=== PATIENT | female | born 1950 | race Caucasian/White ===

== ENCOUNTER 2018-07-01 16:22 | Inpatient (IN) | payer MEDICAID ==
[2018-07-01] MEDS ORDERED: Sodium Chloride 0.9% 1,000 ML IV ONE (16:27)
[2018-07-01] MEDS ORDERED: Haloperidol Lactate 5 mg/mL 1mL Vial IM STA (16:53)
[2018-07-01] MEDS ORDERED: Haloperidol Lactate 5 mg/mL 1mL Vial ONE (17:25)
--- NOTE | 2018-07-01 17:41 | ED Physician Chart ---
ED Chief Complaint/HPI - Patient Information Date Seen:: 07/01/18 Time Seen:: 16:20 Chief Complaint:: AMS History of Present Illness:: onset x 2 days of ALOC, AMS, confusion, agitation, and combative behavior; no report of trauma, H/As, S/T, neck pain, cough, C/P, SOB, Abd. Pain, A/N/V/D/C, fever, chills, or urinary s/s Allergies:: Allergies Allergy/AdvReac Type Severity Reaction Status Date / Time Penicillins [PCN] Allergy Verified 07/01/18 17:22 Historian:: Patient, EMS Review:: Nurse's Note Reviewed, Old Chart Reviewed, EMS run form Reviewed <Cory Briones - Last Filed: 07/01/18 17:36> - Patient Information Allergies:: Allergies Allergy/AdvReac Type Severity Reaction Status Date / Time Penicillins [PCN] Allergy Verified 07/01/18 17:22 <Phong Monte - Last Filed: 07/02/18 12:09> ED Review of Systems - Review of Systems General/Constitutional: No fever, No chills, No weight loss, No weakness, No diaphoresis, No edema, No loss of appetite Skin: No skin lesions, No rash, No bruising Head: No headache, No light-headedness Eyes: No loss of vision, No pain, No diplopia ENT: No earache, No nasal drainage, No sore throat, No tinnitus Neck: No neck pain, No swelling, No thyromegaly, No stiffness, No mass noted Cardio Vascular: No chest pain, No palpitations, No PND, No orthopnea, No edema Pulmonary: No SOB, No cough, No sputum, No wheezing GI: No nausea, No vomiting, No diarrhea, No pain, No melena, No hematochezia, No constipation, No hematemesis G/U: No dysuria, No frequency, No hematuria, No nacturia Rn Lactation Consultant: No vaginal discharge, No abnormal vaginal bleed, No contraction Musculoskeletal: Bone or joint pain, No back pain, No muscle pain Endocrine: No polyuria, No polydipsia Psychiatric: Prior psych history, No depression, Anxiety, No suicidal ideation, No homicidal ideation, No auditory hallucination, No visual hallucination Hematopoietic: No bruising, No lymphadenopathy Allergic/Immuno: No urticaria, No angioedema Neurological: No syncope, No focal symptoms, No weakness, No paresthesia, No headache, No seizure, No dizziness, Confusion, No vertigo <Cory Briones - Last Filed: 07/01/18 17:36> ED Past Medical History - Past Medical History Obtainable: Yes Past Medical History: HTN, DM, CAD, Dyslipidemia, ESRD, Arthritis, Dementia Family History: Diabetes Melitus, HTN Social History: Non Smoker, No Alcohol, No Drug Use, , Care Facility Surgical History: other (Bilateral BKA) Psychiatricy History: Dementia Medication: Reviewed <Cory Briones - Last Filed: 07/01/18 17:36> Family Medical History - Family Member Mother History Unknown: Yes <Cory Briones - Last Filed: 07/01/18 17:36> ED Physical Exam - Physical Examination General/Constitutional: Awake, Well-developed, well-nourished, Alert, No distress, GCS 15, Non-toxic appearing, Ambulatory Head: Atraumatic Eyes: Lids, conjuctiva normal, PERRL, EOMI Skin: Nl inspection, No rash, No skin lesions, No ecchymosis, Well hydrated, No lymphadenopathy ENMT: External ears, nose nl, TM canals nl, Nasal exam nl, Lips, teeth, gums nl , Oropharynx nl, Tonsils nl Neck: Nontender, Full ROM w/o pain, No JVD, No nuchal rigidity, No bruit, No mass, No stridor Respiratory: Nl effort/Exclusion, Clear to Auscultation, No Wheeze/Rhonchi/Rales Cardio Vascular: RRR, No murmur, gallop, rubs, NL S1 S2, Carotid/Femoral/Distal pulses equal bilaterally GI: No tenderness/rebounding/guarding, No organomegaly, No hernia, Normal BS's, Nondistended, No mass/bruits, No McBurney tenderness : No CVA tenderness Extremities: No tenderness or effusion, Full ROM, normal strength in all extremities, No edema, Normal digits & nails Neuro/Psych: DTR's symmetric, Normal sensory exam, Normal motor strength, Judgement/insight normal, Mood normal, Normal gait, No focal deficits Other Neuro/Psych comments:: Disoriented and Confused; MSE: + Psychomotor Agitation; no SIs; Mood/Affect: Labile Misc: Normal back, No paraspinal tenderness <Cory Briones - Last Filed: 07/01/18 17:36> ED Labs/Radiology/EKG Results - Lab Results Comments:: Reviewed <Cory Briones - Last Filed: 07/01/18 17:36> - Lab Results Results: Laboratory Tests 07/01/18 07/01/18 07/01/18 19:38 19:38 19:38 WBC 12.1 H RBC 2.86 L Hgb 9.1 L Hct 27.5 L MCV 96.0 MCH 31.6 H MCHC Differential 32.9 RDW 13.9 Plt Count 340 MPV 7.5 Neutrophils % 75.7 Lymphocytes % 14.8 L Monocytes % 6.3 Eosinophils % 2.4 Basophils % 0.8 PT INR PTT (Actin FS) Sodium 137 Potassium 3.5 Chloride 98 Carbon Dioxide 30.5 Anion Gap 12.0 BUN 23 Creatinine 4.0 H Est GFR ( Amer) 14.4 Est GFR (Non-Af Amer) 11.9 BUN/Creatinine Ratio 5.8 Glucose 66 L Whole Bld Lactic Acid Calcium 8.9 Total Bilirubin 0.5 AST 11 L ALT 3 L Alkaline Phosphatase 138 H Creatine Kinase 54 Troponin I B-Natriuretic Peptide > 5000.0 H Total Protein 6.2 Albumin 3.3 L Globulin 2.9 Albumin/Globulin Ratio 1.1 Triglycerides 62 Cholesterol 125 LDL Cholesterol Direct 65 L HDL Cholesterol 40 Amylase 25 L Lipase 10 L 07/01/18 07/01/18 07/01/18 19:38 19:38 19:38 WBC RBC Hgb Hct MCV MCH MCHC Differential RDW Plt Count MPV Neutrophils % Lymphocytes % Monocytes % Eosinophils % Basophils % PT 11.9 H INR 1.15 PTT (Actin FS) 30.5 Sodium Potassium Chloride Carbon Dioxide Anion Gap BUN Creatinine Est GFR ( Amer) Est GFR (Non-Af Amer) BUN/Creatinine Ratio Glucose Whole Bld Lactic Acid 0.69 Calcium Total Bilirubin AST ALT Alkaline Phosphatase Creatine Kinase Troponin I 0.06 H B-Natriuretic Peptide Total Protein Albumin Globulin Albumin/Globulin Ratio Triglycerides Cholesterol LDL Cholesterol Direct HDL Cholesterol Amylase Lipase - Radiology Results Results: CT head wo contrast: no acute intracranial hemorrhage, infarct or mass effect. <Phong Monte - Last Filed: 07/02/18 12:09> ED Septic Shock - . Is Septic Shock (SBP<90, OR Lactate>4 mmol\L) present?: No <Cory Briones - Last Filed: 07/01/18 17:36> - . Is Septic Shock (SBP<90, OR Lactate>4 mmol\L) present?: No <Phong Monte - Last Filed: 07/02/18 12:09> ED Reassessment (Disposition) - Reassessment Reassessment Condition:: Improved - Diagnosis Diagnosis:: Agitation; AMS; ALOC; DM; HTN; ESRD <Cory Briones - Last Filed: 07/01/18 17:36> - Reassessment Reassessment:: Leukocytosis with unknown source Levaquin 500mg IV Reassessment Condition:: Improved - Patient Disposition Discharge/Transfer:: Acute Care w/in this hosp Admitting Medical Physician:: Daniel Bob <Phong Monte - Last Filed: 07/02/18 12:09>
[2018-07-01 19:52] LABS: % BASOPHILS 0.8 % (0.0-2.0); % EOSINOPHILS 2.4 % (0.0-5.0); % LYMPHOCYTES 14.8 % (20.0-50.0); % MONOCYTES 6.3 % (2.0-10.0); % NEUTROPHILS 75.7 % (40.0-80.0); BASOPHILE ABSOLUTE 0.1 Th/cumm (0-0.2); EOSINOPHILE ABSOLUTE 0.3 Th/cmm (0.1-0.4); HEMATOCRIT 27.5 % (41.0-60); HEMOGLOBIN 9.1 gm/dL (12-16); LYMPHOCYTE ABSOLUTE 1.8 Th/cmm (1.5-3.0); MEAN CORPUSCULAR HEMOGLOBIN 31.6 pg (27.0-31.0); MEAN CORPUSCULAR HGB CONC 32.9 pg (28.0-36.0); MEAN PLATELET VOLUME 7.5 fl; MONOCYTE ABSOLUTE 0.8 Th/cmm (0.3-1.0); NEUTROPHILE ABSOLUTE 9.1 Th/cmm (1.8-8.0); PLATELET COUNT 340 Th/cmm (150-400); RED BLOOD COUNT 2.86 Mil/cmm (3.80-5.20); RED CELL DISTRIBUTION WIDTH 13.9 % (11.5-20.0); WHITE BLOOD COUNT 12.1 Th/cmm (4.8-10.8)
[2018-07-01 19:58] LABS: INR 1.15 (0.5-1.4); PROTHROMBIN TIME (TEST) 11.9 SECONDS (9.5-11.5)
[2018-07-01 20:04] LABS: ALB/GLOB RATIO 1.1 (1.0-1.8); ALBUMIN 3.3 gm/dL (3.7-5.3); BILIRUBIN,TOTAL 0.5 mg/dL (0.3-1.0); CALCIUM SERUM 8.9 mg/dL (8.6-10.3); CARBON DIOXIDE 30.5 mEq/L (21.0-31.0); GFR AFRICAN-AMERICAN 14.4 ml/min (>90); GFR NON AFRICAN-AMERICAN 11.9 ml/min; POTASSIUM SERUM 3.5 mEq/L (3.5-5.1); TOTAL PROTEIN,SERUM 6.2 gm/dL (6.0-8.3)
[2018-07-01] MEDS ORDERED: Levofloxacin 500mg/100mL 500 MG/100 ML BAG IV ONE (23:51)
[2018-07-02] MEDS ORDERED: Levofloxacin 500mg/100mL 500 MG/100 ML BAG IV ONE (00:20)
[2018-07-02 02:28] VITALS: BP 178/53
[2018-07-02 06:29] LABS: % BASOPHILS 0.7 % (0.0-2.0); % EOSINOPHILS 4.4 % (0.0-5.0); % LYMPHOCYTES 17.7 % (20.0-50.0); % MONOCYTES 6.6 % (2.0-10.0); % NEUTROPHILS 70.6 % (40.0-80.0); BASOPHILE ABSOLUTE 0.1 Th/cumm (0-0.2); EOSINOPHILE ABSOLUTE 0.4 Th/cmm (0.1-0.4); HEMATOCRIT 27.8 % (41.0-60); HEMOGLOBIN 9.3 gm/dL (12-16); LYMPHOCYTE ABSOLUTE 1.8 Th/cmm (1.5-3.0); MEAN CELL VOLUME 96.8 fl (81-100); MEAN CORPUSCULAR HEMOGLOBIN 32.3 pg (27.0-31.0); MEAN CORPUSCULAR HGB CONC 33.4 pg (28.0-36.0); MEAN PLATELET VOLUME 7.5 fl; MONOCYTE ABSOLUTE 0.7 Th/cmm (0.3-1.0); NEUTROPHILE ABSOLUTE 6.9 Th/cmm (1.8-8.0); PLATELET COUNT 335 Th/cmm (150-400); RED BLOOD COUNT 2.87 Mil/cmm (3.80-5.20); RED CELL DISTRIBUTION WIDTH 13.5 % (11.5-20.0); WHITE BLOOD COUNT 9.9 Th/cmm (4.8-10.8)
[2018-07-02 06:38] LABS: ALB/GLOB RATIO 1.1 (1.0-1.8); ALBUMIN 3.1 gm/dL (3.7-5.3); ALKALINE PHOSPHATASE 135 U/L (34-104); ANION GAP 12.2 (7.0-16.0); BILIRUBIN,TOTAL 0.5 mg/dL (0.3-1.0); BUN - UREA NITROGEN 28 mg/dL (7-25); CALCIUM SERUM 8.7 mg/dL (8.6-10.3); CARBON DIOXIDE 30.4 mEq/L (21.0-31.0); CHLORIDE 97 mEq/L (98-107); GFR AFRICAN-AMERICAN 12.2 ml/min (>90); GFR NON AFRICAN-AMERICAN 10.1 ml/min; POTASSIUM SERUM 3.6 mEq/L (3.5-5.1); SGOT 11 U/L (13-39); SGPT/ALT < 3 U/L (7-52); SODIUM SERUM 136 mEq/L (136-145)
[2018-07-02 06:42] LABS: CREATININE - SERUM 4.6 mg/dL (0.6-1.2); GLUCOSE 47 mg/dL (70-105)
--- NOTE | 2018-07-02 08:31 | Diagnostic Imaging Report ---
CHEST X-RAY: AP view INDICATION: pain COMPARISON: None FINDINGS: Left dialysis catheter is seen with tip in SVC. Mild CHF is noted. No focal consolidation. There may be a trace left effusion. Cardiomegaly is noted with atherosclerosis. Degenerative changes of the spine are noted. IMPRESSION: Mild CHF. There may be a trace left effusion. No focal consolidation identified. Cardiomegaly and atherosclerotic vascular disease. Left-sided dialysis catheter with tip terminating in the SVC.
--- NOTE | 2018-07-02 08:40 | Diagnostic Imaging Report ---
Head CT without intravenous contrast Indication: pain Comparison: None Technique: Axial images were obtained from the vertex to the skull base without IV contrast. Coronal reconstructions were made. Total DLP: 609, [id number] FINDINGS: Images of the brain obtained without contrast demonstrate no evidence of an acute hemorrhage. Atrophy is noted. Mild white matter disease is noted. The ventricles and basal cisterns are patent. No mass effect or midline shift. Diffuse atherosclerosis is noted. No evidence of a skull fracture or focal soft tissue swelling. There is mucosal thickening of the paranasal sinuses greatest within the left maxillary sinus. Small amount of fluid is seen within the bilateral mastoid air cells. IMPRESSION: No evidence of an acute intracranial hemorrhage. Atrophy. Mild supratentorial white matter disease which is nonspecific and may be due to chronic microvessel ischemia.. Mild sinus disease greatest in the left maxillary sinus. Atherosclerotic vascular disease.
[2018-07-02] MEDS ORDERED: Influenza Vaccine (65 yr & older) 0.5 ml Syr IM ONE (09:00)
--- NOTE | 2018-07-02 12:23 | Diagnostic Imaging Report ---
CT Chest without IV contrast HISTORY: Shortness of breath COMPARISON: Chest x-ray on 07/01/2018. Technique: Axial images were obtained from the base of the neck to the upper abdomen without IV contrast. Reconstructions were made. Total DLP 294 , CTD I 9.2 Findings: Left-sided dialysis catheter is noted with tip terminating in the distal SVC. Assessment of the mediastinum is limited due to lack of IV contrast. No mediastinal adenopathy. Heavy atherosclerotic vascular disease is noted with coronary artery calcifications. No evidence of an aneurysm. Mild cardiomegaly is noted. No pericardial effusion. Evaluation of the lungs demonstrates hypoventilatory and atelectatic changes minimal groundglass densities. Minimal left basal passive atelectatic and consolidative changes are noted. No effusions. The upper abdomen demonstrates diffuse atherosclerosis degenerative changes of the spine are noted. IMPRESSION: Mild hypoventilatory and minimal groundglass opacities of the lungs, nonspecific. Minimal congestion cannot be excluded. Minimal left basal passive atelectatic and consolidative changes Heavy atherosclerotic vascular disease. Left-sided CATHETER with tip terminating at the distal SVC.
[2018-07-02] MEDS: INSULIN ASPART SLIDING SCALE 100 UNITS/ML UNIT SUBQ SCH ×3 (12:29→20:29)
[2018-07-02] MEDS: NITROGLYCERIN OINT 2% 1 INCH PACKET TP SCH ×2 (12:31→19:37)
--- NOTE | 2018-07-02 13:24 | History & Physical ---
ADMIT DATE: 07/02/2018 PATIENT'S IDENTIFICATION: A 68-year-old female. CHIEF COMPLAINT: Sent to Emergency Room for evaluation of altered mental status and agitation with combative behavior. HISTORY OF PRESENT ILLNESS: A 68-year-old [place] female with history of type 2 diabetes, hypertension, peripheral vascular disease, history of pemphigoid, history of end-stage renal disease on hemodialysis, recently discharged from the hospital, receiving IV cefepime and Flagyl for infection of pneumonitis at custodial, but the patient was noted to have increasing confusion and having more agitation with aggressive behavior. There was no report of any trauma or any head injury. The patient was evaluated by Emergency Room MD. CT scan of head was unremarkable. In the view of her behavior along with complex medical history and available labs, it was decided that patient should be admitted for further management. PAST MEDICAL HISTORY: Remarkable for: 1. Diabetes. 2. Hypertension. 3. Hyperlipidemia. 4. End-stage renal disease, on hemolysis. 5. Degenerative joint disease. 6. Bilateral below knee amputation. 7. Peripheral vascular disease. 8. Dementia. MEDICATIONS: At the time of transfer, the patient is taking multiple medications, which includes Procrit, Tylenol, Norvasc, carvedilol, Plavix, Colace, ferrous sulfate, folic acid, hydroxyzine, sliding scale insulin, Zofran, Senokot, Renvela, simvastatin. ALLERGIES: The patient is allergic to PENICILLIN. SOCIAL HISTORY: The patient resides in a custodial. No history of smoking cigarette, alcohol, or drug use. FAMILY MEDICAL HISTORY: Unavailable. REVIEW OF SYSTEMS: Unable to get meaningful history from the patient due to the patient's current mental status. PHYSICAL EXAMINATION: GENERAL: The patient is alert, awake, opens her eyes, not following commands. VITAL SIGNS: Temperature 98.1, pulse is 76, respiratory rate is 18, blood pressure 130/78. HEENT: Normocephalic, atraumatic. Pupils are reactive to light. Sclerae clear without icterus. Tongue was pink and coated. No facial asymmetry noted. NECK: Supple, no JVD. No lymphadenopathy, thyromegaly. HEART: Both heart sounds are regular. No S3, no S4. CHEST AND LUNGS: Equal in expansion, no expiratory wheezing. ABDOMEN: Soft and no guarding, no rigidity. Bowel sounds are present. No palpable mass. EXTREMITIES: Bilateral below knee amputation noted. SKIN: Multiple bruises noted. NEUROLOGIC: The patient is alert, awake, but not following any commands. AVAILABLE DIAGNOSTIC DATA: White count of 12.1, hemoglobin 9.1, platelet count of 340. PT and PTT are normal. BUN and creatinine is 23 and 4.0, potassium 3.5, glucose of 66, AST and ALT 11 and 3. Troponin of 0.06. BNP is more than 5000. Albumin of 3.3, lipase and amylase is [address] scan of the head remarkable for no acute infarct, hemorrhage, edema, chronic small vessel changes noted, partial opacification of mastoid air cells noted, no other osseous abnormality. EKG is unavailable for my review. Chest x-ray performed on 07/01/2018 in the Emergency Room remarkable for bilateral infiltrate with trace left effusion noted, cardiomegaly and atherosclerotic vascular disease noted. CLINICAL IMPRESSION: 1. Altered mental status with aggressive behavior, most likely secondary to metabolic and infectious encephalopathy. 2. Elevated BNP of more than 5000 with cardiomegaly with atherosclerotic changes. Needs to ruled out for congestive heart failure, probably secondary to diastolic or systolic heart failure, needs Cardiology evaluation. 3. Recently treated for pneumonia, suspect patient has health-acquired pneumonia. 4. Diabetes mellitus. 5. Hypertension. 6. End-stage renal disease, on hemolysis. 7. Peripheral vascular disease, status post bilateral below-knee amputation. 8. Anemia of chronic kidney disease. PLAN: The patient is admitted by me overnight to telemetry unit. The patient is currently getting oxygen, nebulizer treatment with IV Azactam and vancomycin. We will have Infectious Disease consultation along with Nephrology consultation for hemodialysis. Cardiac enzymes will be requested. 2D echocardiogram will be done. Nitrates will be added and we will follow remediation consultant recommendations as well. Appropriate home medicine was reconciled and we will continue to follow the remediation consultant's recommendations. Care plan has been reviewed and discussed with staff. JOB# [id number]
[2018-07-02 13:58] LABS: % BASOPHILS 0.9 % (0.0-2.0); % EOSINOPHILS 4.4 % (0.0-5.0); % LYMPHOCYTES 17.7 % (20.0-50.0); BASOPHILE ABSOLUTE 0.1 Th/cumm (0-0.2); EOSINOPHILE ABSOLUTE 0.4 Th/cmm (0.1-0.4); HEMATOCRIT 26.8 % (41.0-60); HEMOGLOBIN 8.9 gm/dL (12-16); LYMPHOCYTE ABSOLUTE 1.5 Th/cmm (1.5-3.0); MEAN CELL VOLUME 96.6 fl (81-100); MEAN CORPUSCULAR HGB CONC 33.2 pg (28.0-36.0); MEAN PLATELET VOLUME 7.2 fl; MONOCYTE ABSOLUTE 0.5 Th/cmm (0.3-1.0); NEUTROPHILE ABSOLUTE 6.2 Th/cmm (1.8-8.0); PLATELET COUNT 352 Th/cmm (150-400); RED BLOOD COUNT 2.78 Mil/cmm (3.80-5.20); RED CELL DISTRIBUTION WIDTH 13.6 % (11.5-20.0); WHITE BLOOD COUNT 8.7 Th/cmm (4.8-10.8)
--- NOTE | 2018-07-02 15:05 | Consultation ---
DATE OF CONSULTATION: 07/02/2018 RENAL CONSULTATION. LOCATION: [facility], room #17 bed A. ATTENDING PHYSICIAN: Dr. Bob. Thank you very much, Dr. Bob for this consult. INDICATIONS: This is a 68-year-old female patient known to me for the last couple of years. HISTORY OF PRESENT ILLNESS: A 68-year-old female patient known case of CKD V, on chronic hemodialysis; history of hypertension; diabetes mellitus; and peripheral vascular disease. The patient recently was found to have malfunction of the graft and the patient is now getting dialysis through left subclavian Perm-A-Cath. The patient is a resident of longterm. The patient was recently discharged from the hospital after receiving antibiotic for pneumonitis. The patient got very confused at longterm and so, the patient has been transferred, admitted. Renal consultation has been requested. The patient is currently on the dialysis at this time. According to nursing staff, the patient does not have any seizures. No vomiting or diarrhea. The patient is receiving all of his regular medication. No history of cough. No history of hematuria, anuria. PAST MEDICAL AND SURGICAL HISTORY: History of CKD V, on chronic hemodialysis; DJD; pneumonia; left upper extremity AV shunt malfunction; peripheral vascular disease; hypertension; diabetes mellitus; hyperlipidemia; and BKA. SOCIAL HISTORY: No history of alcoholism or smoking. The patient lives in a board and care. ALLERGIES: The patient is allergic to PENICILLIN. PHYSICAL EXAMINATION: VITAL SIGNS: Temperature 98.3, pulse 73, blood pressure 126/74, and respirations 18. HEENT: Head normocephalic, atraumatic. Eyes, sclerae is nonicteric. Conjunctivae are pale. Pupils reactive. NECK: Thyroid is nontender, not enlarged. Jugular venous pressure normal. No neck stiffness. No lymphadenopathy. LUNGS: Good air entry. Few rhonchi on the right base. ABDOMEN: Soft, not distended. Bowel sounds present. EXTREMITIES: BKA, trace edema. SIGNIFICANT LABORATORY DATA: WBC 12.1 and hemoglobin 9.1. Sodium 137, potassium 3.5, chloride 98, CO2 30, BUN 23, creatinine 4.0, and blood sugar low at 66. ASSESSMENT: 1. Chronic kidney disease V, on chronic hemodialysis. 2. Anemia. 3. Below the knee amputation. 4. Diabetes mellitus with hypoglycemia. 5. Peripheral vascular disease. 6. Hypertension. PLAN: 1. Dialysis will be done today and again every other day. 2. Continue the patient on antibiotics and amlodipine. 3. Start the patient on Epogen subcutaneous. Continue ferrous sulfate and folic acid. 4. Check CMP, phosphorus, TSH, magnesium, CBC in the morning. Continue the patient on Plavix. Further management depends upon the outcome of this management. Discussed with dialysis nurse and floor nurse. I will follow this patient with you. JOB# [id number]
--- NOTE | 2018-07-02 15:46 | Consultation ---
DATE OF CONSULTATION: 07/02/[address] Bob. HISTORY OF PRESENT ILLNESS: This is a 68-year-old female patient who recently had pneumonia, being treated with IV antibiotics at the detention. The patient became confused, agitated, aggressive behavior. Following this, the patient was brought to [facility] and the patient is admitted. No history of PND, orthopnea. PAST MEDICAL HISTORY: The patient has a history of diabetes type 2, diabetic CKD, stage V; end-stage renal disease, on dialysis; pneumonia; iron-deficiency anemia; diabetic peripheral vascular disease with bilateral BKA; diabetic retinopathy with legally blind; hyperlipidemia, major depression; and dementia. FAMILY HISTORY: Unremarkable. SOCIAL HISTORY: No history of smoking, alcohol abuse. ALLERGIES: No known allergies. PHYSICAL EXAMINATION: VITAL SIGNS: Blood pressure 140/80, pulse 70, respirations 20, and temperature 98. LUNGS: Basilar rales. HEART: PMI sixth intercostal space with lateral to midclavicular line. S1, S2, S3, S4, soft systolic murmur. ABDOMEN: Soft. Liver and spleen not palpable. Hepatojugular reflux positive. Bowel sounds active. NEUROLOGIC: No focal neurological deficit. EXTREMITIES: Peripheral pulses 1+. The patient has bilateral BKA. CLINICAL IMPRESSION: Congestive heart failure, the patient to have ultrafiltration, aggressive. We will also get an echocardiogram for left ventricular function. Diabetes mellitus type 2, diabetic chronic kidney disease stage V; end-stage renal disease, on dialysis; iron-deficiency anemia; major depression; diabetic peripheral vascular disease with bilateral below the knee amputation; diabetic retinopathy with blindness, the patient is legally blind; and hyperlipidemia. PLAN: The patient to continue present management. We will get echocardiogram. JOB# [id number]
[2018-07-02] MEDS ORDERED: Heparin Sod 1,000 Units/mL 10ml HD SCH (16:00)
[2018-07-02] MEDS: Ferrous Sulfate 325 MG TAB PO SCH (16:18)
[2018-07-03] MEDS: NITROGLYCERIN OINT 2% 1 INCH PACKET TP SCH ×3 (05:04→17:49)
[2018-07-03] MEDS: INSULIN ASPART SLIDING SCALE 100 UNITS/ML UNIT SUBQ SCH ×4 (06:37→20:58)
[2018-07-03 07:10] LABS: % BASOPHILS 0.7 % (0.0-2.0); % LYMPHOCYTES 28.6 % (20.0-50.0); % MONOCYTES 8.2 % (2.0-10.0); % NEUTROPHILS 58.5 % (40.0-80.0); BASOPHILE ABSOLUTE 0.1 Th/cumm (0-0.2); EOSINOPHILE ABSOLUTE 0.3 Th/cmm (0.1-0.4); HEMATOCRIT 27.1 % (41.0-60); LYMPHOCYTE ABSOLUTE 2.3 Th/cmm (1.5-3.0); MEAN CELL VOLUME 96.3 fl (81-100); MEAN CORPUSCULAR HEMOGLOBIN 31.8 pg (27.0-31.0); MEAN CORPUSCULAR HGB CONC 33.1 pg (28.0-36.0); MEAN PLATELET VOLUME 7.5 fl; MONOCYTE ABSOLUTE 0.7 Th/cmm (0.3-1.0); NEUTROPHILE ABSOLUTE 4.7 Th/cmm (1.8-8.0); PLATELET COUNT 357 Th/cmm (150-400); RED BLOOD COUNT 2.81 Mil/cmm (3.80-5.20); RED CELL DISTRIBUTION WIDTH 13.5 % (11.5-20.0); WHITE BLOOD COUNT 8.1 Th/cmm (4.8-10.8)
[2018-07-03 07:23] LABS: ALB/GLOB RATIO 1.2 (1.0-1.8); ALBUMIN 3.3 gm/dL (3.7-5.3); BILIRUBIN,TOTAL 0.4 mg/dL (0.3-1.0); CALCIUM SERUM 8.9 mg/dL (8.6-10.3); CARBON DIOXIDE 30.9 mEq/L (21.0-31.0); CREATININE - SERUM 3.3 mg/dL (0.6-1.2); GFR AFRICAN-AMERICAN 17.9 ml/min (>90); GFR NON AFRICAN-AMERICAN 14.8 ml/min; PHOSPHOROUS 1.2 mg/dL (2.5-5.0); POTASSIUM SERUM 3.9 mEq/L (3.5-5.1); TOTAL PROTEIN,SERUM 6.1 gm/dL (6.0-8.3)
[2018-07-03] MEDS: Ferrous Sulfate 325 MG TAB PO SCH ×2 (08:33→16:38)
--- NOTE | 2018-07-03 12:30 | General Progress Note ---
Subjective - Review of Systems Service Date: 07/03/18 Subjective: Patient had less shortness of breath patient had dialysis Objective - Results Result Diagrams: 07/03/18 06:40 07/03/18 06:40 Recent Labs: Laboratory Last Values WBC 8.1 Th/cmm (4.8-10.8) 07/03/18 06:40 RBC 2.81 Mil/cmm (3.80-5.20) L 07/03/18 06:40 Hgb 9.0 gm/dL (12-16) L 07/03/18 06:40 Hct 27.1 % (41.0-60) L 07/03/18 06:40 MCV 96.3 fl (81-100) 07/03/18 06:40 MCH 31.8 pg (27.0-31.0) H 07/03/18 06:40 MCHC Differential 33.1 pg (28.0-36.0) 07/03/18 06:40 RDW 13.5 % (11.5-20.0) 07/03/18 06:40 Plt Count 357 Th/cmm (150-400) 07/03/18 06:40 MPV 7.5 fl 07/03/18 06:40 Neutrophils % 58.5 % (40.0-80.0) 07/03/18 06:40 Lymphocytes % 28.6 % (20.0-50.0) 07/03/18 06:40 Monocytes % 8.2 % (2.0-10.0) 07/03/18 06:40 Eosinophils % 4.0 % (0.0-5.0) 07/03/18 06:40 Basophils % 0.7 % (0.0-2.0) 07/03/18 06:40 PT 11.9 SECONDS (9.5-11.5) H 07/01/18 19:38 INR 1.15 (0.5-1.4) 07/01/18 19:38 PTT (Actin FS) 30.5 SECONDS (26.0-38.0) 07/01/18 19:38 Sodium 137 mEq/L (136-145) 07/03/18 06:40 Potassium 3.9 mEq/L (3.5-5.1) 07/03/18 06:40 Chloride 99 mEq/L (98-107) 07/03/18 06:40 Carbon Dioxide 30.9 mEq/L (21.0-31.0) 07/03/18 06:40 Anion Gap 11.0 (7.0-16.0) 07/03/18 06:40 BUN 18 mg/dL (7-25) 07/03/18 06:40 Creatinine 3.3 mg/dL (0.6-1.2) H 07/03/18 06:40 Est GFR ( Amer) 17.9 ml/min (>90) 07/03/18 06:40 Est GFR (Non-Af Amer) 14.8 ml/min 07/03/18 06:40 BUN/Creatinine Ratio 5.5 07/03/18 06:40 Glucose 77 mg/dL (70-105) 07/03/18 06:40 POC Glucose 145 MG/DL (70 - 105) H 07/03/18 11:50 Whole Bld Lactic Acid 0.69 mmol/L (0.60-1.99) 07/01/18 19:38 Calcium 8.9 mg/dL (8.6-10.3) 07/03/18 06:40 Phosphorus 1.2 mg/dL (2.5-5.0) L 07/03/18 06:40 Total Bilirubin 0.4 mg/dL (0.3-1.0) 07/03/18 06:40 AST 12 U/L (13-39) L 07/03/18 06:40 ALT 3 U/L (7-52) L 07/03/18 06:40 Alkaline Phosphatase 132 U/L (34-104) H 07/03/18 06:40 Ammonia 34 umol/L (16-53) 07/02/18 05:57 Creatine Kinase 54 U/L (30-223) 07/01/18 19:38 Troponin I 0.06 ng/mL (0.01-0.05) H D 07/03/18 02:20 B-Natriuretic Peptide 3170.0 pg/mL (5.0-100.0) H 07/03/18 06:40 Total Protein 6.1 gm/dL (6.0-8.3) 07/03/18 06:40 Albumin 3.3 gm/dL (3.7-5.3) L 07/03/18 06:40 Globulin 2.8 gm/dL 07/03/18 06:40 Albumin/Globulin Ratio 1.2 (1.0-1.8) 07/03/18 06:40 Triglycerides 62 mg/dL (<150) 07/01/18 19:38 Cholesterol 125 mg/dL (<200) 07/01/18 19:38 LDL Cholesterol Direct 65 mg/dL (75-193) L 07/01/18 19:38 HDL Cholesterol 40 mg/dL (23-92) 07/01/18 19:38 Amylase 25 U/L (29-103) L 07/01/18 19:38 Lipase 10 U/L (11-82) L 07/01/18 19:38 - Physical Exam Vitals and I&O: Vital Signs Temp 98.1 F 07/03/18 11:28 Pulse 80 07/03/18 11:28 Resp 18 07/03/18 11:28 BP 131/63 07/03/18 11:28 Pulse Ox 98 07/03/18 11:28 Intake & Output 07/02/18 07/03/18 07/03/18 18:59 06:59 18:59 Intake Total 3790 Output Total 2400 Balance 1390 Weight (lbs) 67.721 kg Intake: Intake, IV Amount 50 Aztreonam 0.5 gm In 50 Dextrose 5% 50 ml @ 100 mls/hr IV Q12HR [facility] Rx#: [id number] Oral 1740 Other 2000 Output: Hemodialysis 2400 Other: # Voids 1 # Bowel Movements 1 Stool Characteristics Soft Soft Soft Black Weight Source Bedscale Active Medications: Current Medications Acetaminophen (Tylenol) 325 mg PO Q6HR PRN PRN Reason: Pain (Mild) Stop: 08/31/18 09:43 Amlodipine Besylate (Norvasc) 5 mg PO DAILY [facility] Stop: 08/31/18 10:29 Last Admin: 07/03/18 09:39 Dose: Not Given Carvedilol (Coreg) 6.25 mg PO BID [facility] Stop: 08/31/18 16:59 Last Admin: 07/03/18 08:33 Dose: 6.25 mg Clopidogrel Bisulfate (Plavix) 75 mg PO DAILY [facility] Stop: 09/01/18 08:59 Last Admin: 07/03/18 08:32 Dose: 75 mg Docusate Sodium (Colace) 100 mg PO BID [facility] Stop: 08/31/18 16:59 Last Admin: 07/03/18 08:33 Dose: 100 mg Epoetin Mohsen (Epogen) 10,000 units SUBQ TuThSa [facility] Stop: 09/01/18 13:41 Ferrous Sulfate (Iron) 325 mg PO BID [facility] Stop: 08/31/18 16:59 Last Admin: 07/03/18 08:33 Dose: 325 mg Folic Acid (Folate) 1 mg PO DAILY [facility] Stop: 09/01/18 08:59 Last Admin: 07/03/18 08:33 Dose: 1 mg Hydroxyzine HCl (Atarax) 25 mg PO Q8HR PRN; Protocol PRN Reason: Pruritus Stop: 08/31/18 09:43 Aztreonam 0.5 gm/ Dextrose 50 mls @ 100 mls/hr IV Q12HR [facility] Stop: 08/31/18 20:59 Last Admin: 07/03/18 10:02 Dose: 100 mls/hr Insulin Aspart (Novolog Insulin Sliding Scale) 0 units SUBQ ACHS [facility]; Protocol Stop: 08/31/18 11:29 Last Admin: 07/03/18 11:53 Dose: Not Given Miscellaneous (Clinical Monitoring) 1 ea DAILY PRN PRN Reason: RENAL DOSING Stop: 08/31/18 08:03 Miscellaneous (Vancomycin Iv Per Pharmacy) 1 ea DAILY [facility] Stop: 09/01/18 08:59 Nitroglycerin (Nitro-Bid) 1 inch TP Q6HR [facility] Stop: 08/31/18 11:59 Last Admin: 07/03/18 05:04 Dose: 1 inch Ondansetron HCl (Zofran Odt) 4 mg PO Q6H PRN PRN Reason: Nausea / Vomiting Senna (Senna) 8.6 mg PO Q8H PRN PRN Reason: Constipation Stop: 08/31/18 09:43 Sevelamer Carbonate (Renvela) 3,200 mg PO TID [facility] Stop: 08/31/18 13:59 Last Admin: 07/03/18 08:36 Dose: Not Given Simvastatin (Zocor) 20 mg PO HS [facility]; Protocol Stop: 08/31/18 20:59 Last Admin: 07/02/18 20:29 Dose: 20 mg General: No acute distress HEENT: Other (normal) Neck: JVD (10 cm above sternal angle) Cardiovascular: Normal S1, Normal S2, Systolic murmurs Lungs: Other (IO rales) Abdomen: Bowel sounds Extremities: Edema Assessment/Plan - Assessment Assessment: Congestive heart failure systolic dysfunction Cardiomyopathy is ischemic Diabetic mellitus type II Diabetic security states Saturday end-stage renal disease on dialysis Diabetic peripheral neuropathy Diabetic peripheral vascular disease bilateral BKA Diverticular tendinopathy patient legally blind Hyperlipidemia 9 deficiency anemia Echocardiogram ejection fraction 42% trace mitral regurgitation tricuspid regurgitation left atrial enlargement tried to turn enlargement left ventricular hypertrophy - Plan Plan: Patient to have dialysis with ultrafiltration
[2018-07-03] MEDS ORDERED: Epoetin Alfa 20000 Units/mL Vial SUBQ SCH (13:42)
--- NOTE | 2018-07-03 20:40 | Progress Notes ---
DATE: 07/03/2018 PATIENT'S IDENTIFICATION: A 68-year-old female. The patient was seen and examined. The patient is lying in the bed. The patient is more alert, awake and able to take p.o. Idea Worker's help greatly appreciated. 2D echocardiogram remarkable for global hypokinesis with ejection fraction of 40%. The patient remained hemodynamically stable. PHYSICAL EXAMINATION: VITAL SIGNS: Temperature 98.3, pulse 84, respiratory rate 18, blood pressure 134/60. HEENT: Legally blindness. NECK: Supple, no JVD. HEART: Regular. CHEST AND LUNG: Equal in expansion with fine basal crackles noted. ABDOMEN: Soft. No guarding, no rigidity. Bowel sounds are present. No palpable mass. EXTREMITIES: Bilateral below-knee amputation noted. CLINICAL IMPRESSION: 1. Acute pulmonary edema, status post hemodialysis. 2. Congestive heart failure. 3. Most likely ischemic cardiomyopathy with ejection fraction of 40%. 4. Diabetes mellitus. 5. Hypertension. 6. Peripheral vascular disease. 7. Degenerative joint disease. 8. Legally blindness. 9. Hyperlipidemia. PLAN: 1. Cardiac monitoring. 2. Hemodialysis. 3. Medical management for congestive heart failure. 4. Monitor blood sugar and blood pressure. 5. General nursing care. 6. Follow up lab. 7. Follow consult recommendation. 8. Chronic disease management. 9. Care plan reviewed and discussed with staff. JOB# [id number]
--- NOTE | 2018-07-03 22:06 | Consultation ---
DATE OF CONSULTATION: 07/03/2018 INFECTIOUS DISEASE CONSULTATION REFERRING PHYSICIAN: Daniel oBb M.D. REASON FOR CONSULTATION: Pneumonia. HISTORY OF PRESENT ILLNESS: The patient is a 68-year-old female with a past medical history of diabetes mellitus type 2, hypertension, peripheral vascular disease, history of pemphigoid, history of end-stage renal disease, on hemodialysis, and discharged from the hospital for pneumonia, receiving IV cefepime and Flagyl. The patient has increased confusion and has more agitation with aggressive behavior. On initial evaluation, the patient's temperature was 98.1 degrees Fahrenheit, and WBC count was 12,100. Chest x-ray reported little mild CHF. There is a trace left effusion, no focal consolidation. Cardiomegaly and atherosclerosis vascular disease. Left-sided dialysis catheter with a PICC line. Chest x-ray revealed trace left effusion. A CT scan of the chest was performed, which showed left-sided pleural effusion and hypoventilation and minimal ground glass opacity of the lungs, nonspecific. CT scan of the chest revealed left-sided transition with consolidative changes noted. CT scan of the abdomen, and chest scan of the chest was reviewed, mild hypoventilatory and minimal ground glass opacity of the lungs, nonspecific, minimal congestion. Axilla, minimal left base passive atelectasis and contrast was ordered. Antibiotic garcia, the patient was started on aztreonam and vancomycin. ____ antibiotic management. PAST MEDICAL HISTORY: Includes diabetes mellitus type 2, hypertension, hyperlipidemia, CKD stage 5, on hemodialysis, DJD, bilateral below knee amputation, peripheral vascular disease, dementia, ____. MEDICATIONS: As per medication reconciliation sheet. Antibiotic garcia, the patient is receiving Azactam and Flagyl along with vancomycin IV. REVIEW OF SYSTEMS: The patient is a poor historian. PHYSICAL EXAMINATION: GENERAL: The patient is comfortable, lying in the bed, not in acute distress. Obese. VITAL SIGNS: Shows temperature is 98.1, pulse is 85, respirations 18, blood pressure 123/50. HEENT: Head is normocephalic, atraumatic. Oral cavity moist, pink tongue. EYES: The patient is blind with both eyes. NECK: Supple, no JVD, no carotid bruit. Trachea midline. CHEST: Bilateral breath sounds. No crackles or wheezing. HEART: S1, S2 within normal limits. Regular rhythm. No murmur or gallop. ABDOMEN: Soft, nontender, nondistended. Bowel sounds present. EXTREMITIES: No cyanosis, no clubbing, no edema. NEUROLOGIC: Alert and awake, but confused. LABORATORY DATA: Current lab values, WBC 8100, hemoglobin 9, hematocrit 27.1, platelets are 257,000, neutrophils 58.5%. Sodium 137, potassium 3.9, chloride 99, bicarbonate is 38.9, BUN is 18, creatinine is 3.3, glucose is 77. BNP is 3170. CT scan of the chest revealed a left lower lobe infiltrate consolidation. CT scan shows consolidative changes with left basal area. ASSESSMENT: 1. Pneumonia. 2. Chronic kidney disease stage 5, hemodialysis. 3. Hypertension. 4. Diabetes mellitus type 2. 5. End-stage renal disease. 6. Hyperlipidemia. 7. Bilateral below-knee amputation. RECOMMENDATIONS: Continue vancomycin, aztreonam and Flagyl. JOB# [id number]
--- NOTE | 2018-07-03 22:54 | Progress Notes ---
DATE: Room 17, bed A at [facility]. The patient had dialysis yesterday, tolerated it well. OBJECTIVE: VITAL SIGNS: Temperature today 98.1, pulse 80, blood pressure 123/50. Yesterday's intake 3790, ultrafiltration output 2400. HEART: Regular. LUNGS: Much clear. ABDOMEN: Benign. EXTREMITIES: No edema. LABORATORY DATA: Hemoglobin 9.0. Sodium 137, potassium 3.9, creatinine 3.3, fasting blood sugar today 145, phosphorus 1.2, calcium 8.9. ASSESSMENT: 1. Chronic kidney disease 5, on chronic hemodialysis Saturday, Saturday, and Saturday. 2. Anemia. 3. Hypophosphatemia. 4. Obesity. 5. Bilateral BKA. 6. Peripheral vascular disease. 7. Diabetes mellitus with recurrent hypoglycemia, improving. 8. Hypertension. PLAN: 1. Hemodialysis will be done tomorrow. 2. Hold phosphate binder. 3. If patient's mental status does not improve, then patient may require dialysis again day after tomorrow. 4. If the patient's phosphorus continued to be low, then we will give the patient Neutra-Phos. 5. Discussed with nursing staff at length. JOB# [id number]
[2018-07-04] MEDS: NITROGLYCERIN OINT 2% 1 INCH PACKET TP SCH ×6 (00:47→18:13)
[2018-07-04] MEDS: INSULIN ASPART SLIDING SCALE 100 UNITS/ML UNIT SUBQ SCH ×3 (08:50→17:14)
[2018-07-04] MEDS: Ferrous Sulfate 325 MG TAB PO SCH ×2 (09:09→16:55)
[2018-07-04] MEDS ORDERED: Heparin Sod 1,000 Units/mL 10ml HD ONE ×2 (10:00→11:30)
[2018-07-04] MEDS ORDERED: Heparin Sodium 1,000 Units/mL Vial HD ONE (11:30)
--- NOTE | 2018-07-04 14:20 | Infectious Disease Prog Note ---
Infectious Disease Subjective - Review of Systems Service Date: 07/04/18 Subjective: There is no new change, no fever. Infectious Disease Objective - Results Result Diagrams: 07/03/18 06:40 07/03/18 06:40 Recent Labs: Laboratory Last Values WBC 8.1 Th/cmm (4.8-10.8) 07/03/18 06:40 RBC 2.81 Mil/cmm (3.80-5.20) L 07/03/18 06:40 Hgb 9.0 gm/dL (12-16) L 07/03/18 06:40 Hct 27.1 % (41.0-60) L 07/03/18 06:40 MCV 96.3 fl (81-100) 07/03/18 06:40 MCH 31.8 pg (27.0-31.0) H 07/03/18 06:40 MCHC Differential 33.1 pg (28.0-36.0) 07/03/18 06:40 RDW 13.5 % (11.5-20.0) 07/03/18 06:40 Plt Count 357 Th/cmm (150-400) 07/03/18 06:40 MPV 7.5 fl 07/03/18 06:40 Neutrophils % 58.5 % (40.0-80.0) 07/03/18 06:40 Lymphocytes % 28.6 % (20.0-50.0) 07/03/18 06:40 Monocytes % 8.2 % (2.0-10.0) 07/03/18 06:40 Eosinophils % 4.0 % (0.0-5.0) 07/03/18 06:40 Basophils % 0.7 % (0.0-2.0) 07/03/18 06:40 PT 11.9 SECONDS (9.5-11.5) H 07/01/18 19:38 INR 1.15 (0.5-1.4) 07/01/18 19:38 PTT (Actin FS) 30.5 SECONDS (26.0-38.0) 07/01/18 19:38 Sodium 137 mEq/L (136-145) 07/03/18 06:40 Potassium 3.9 mEq/L (3.5-5.1) 07/03/18 06:40 Chloride 99 mEq/L (98-107) 07/03/18 06:40 Carbon Dioxide 30.9 mEq/L (21.0-31.0) 07/03/18 06:40 Anion Gap 11.0 (7.0-16.0) 07/03/18 06:40 BUN 18 mg/dL (7-25) 07/03/18 06:40 Creatinine 3.3 mg/dL (0.6-1.2) H 07/03/18 06:40 Est GFR ( Amer) 17.9 ml/min (>90) 07/03/18 06:40 Est GFR (Non-Af Amer) 14.8 ml/min 07/03/18 06:40 BUN/Creatinine Ratio 5.5 07/03/18 06:40 Glucose 77 mg/dL (70-105) 07/03/18 06:40 POC Glucose 140 MG/DL (70 - 105) H 07/04/18 11:27 Whole Bld Lactic Acid 0.69 mmol/L (0.60-1.99) 07/01/18 19:38 Calcium 8.9 mg/dL (8.6-10.3) 07/03/18 06:40 Phosphorus 1.2 mg/dL (2.5-5.0) L 07/03/18 06:40 Total Bilirubin 0.4 mg/dL (0.3-1.0) 07/03/18 06:40 AST 12 U/L (13-39) L 07/03/18 06:40 ALT 3 U/L (7-52) L 07/03/18 06:40 Alkaline Phosphatase 132 U/L (34-104) H 07/03/18 06:40 Ammonia 34 umol/L (16-53) 07/02/18 05:57 Creatine Kinase 54 U/L (30-223) 07/01/18 19:38 Troponin I 0.06 ng/mL (0.01-0.05) H D 07/03/18 02:20 B-Natriuretic Peptide 3170.0 pg/mL (5.0-100.0) H 07/03/18 06:40 Total Protein 6.1 gm/dL (6.0-8.3) 07/03/18 06:40 Albumin 3.3 gm/dL (3.7-5.3) L 07/03/18 06:40 Globulin 2.8 gm/dL 07/03/18 06:40 Albumin/Globulin Ratio 1.2 (1.0-1.8) 07/03/18 06:40 Triglycerides 62 mg/dL (<150) 07/01/18 19:38 Cholesterol 125 mg/dL (<200) 07/01/18 19:38 LDL Cholesterol Direct 65 mg/dL (75-193) L 07/01/18 19:38 HDL Cholesterol 40 mg/dL (23-92) 07/01/18 19:38 Amylase 25 U/L (29-103) L 07/01/18 19:38 Lipase 10 U/L (11-82) L 07/01/18 19:38 Random Vancomycin 23.0 ug/mL (5.0-40.0) 07/04/18 05:50 - Physical Exam Vitals and I&O: Vital Signs Temp 98.0 F 07/04/18 11:46 Pulse 79 07/04/18 12:40 Resp 18 07/04/18 11:46 BP 175/70 07/04/18 12:40 Pulse Ox 98 07/04/18 11:46 Intake & Output 07/03/18 07/04/18 07/04/18 18:59 06:59 18:59 Intake Total 650 50 Balance 650 50 Weight (lbs) 67.721 kg 68.039 kg Intake: Intake, IV Amount 50 50 Aztreonam 0.5 gm In 50 50 Dextrose 5% 50 ml @ 100 mls/hr IV Q12HR [facility] Rx#: [id number] Oral 600 Other: # Voids 1 # Bowel Movements 1 Stool Characteristics Soft Soft Soft Weight Source Bedscale Bedscale Active Medications: Current Medications Acetaminophen (Tylenol) 325 mg PO Q6HR PRN PRN Reason: Pain (Mild) Stop: 08/31/18 09:43 Amlodipine Besylate (Norvasc) 5 mg PO DAILY [facility] Stop: 08/31/18 10:29 Last Admin: 07/04/18 12:40 Dose: 5 mg Carvedilol (Coreg) 6.25 mg PO BID [facility] Stop: 08/31/18 16:59 Last Admin: 07/04/18 12:39 Dose: 6.25 mg Clopidogrel Bisulfate (Plavix) 75 mg PO DAILY [facility] Stop: 09/01/18 08:59 Last Admin: 07/04/18 09:09 Dose: 75 mg Docusate Sodium (Colace) 100 mg PO BID [facility] Stop: 08/31/18 16:59 Last Admin: 07/04/18 09:09 Dose: 100 mg Epoetin Mohsen (Epogen) 10,000 units SUBQ TuThSa [facility] Stop: 09/01/18 13:41 Last Admin: 07/03/18 14:52 Dose: 10,000 units Ferrous Sulfate (Iron) 325 mg PO BID [facility] Stop: 08/31/18 16:59 Last Admin: 07/04/18 09:09 Dose: 325 mg Folic Acid (Folate) 1 mg PO DAILY [facility] Stop: 09/01/18 08:59 Last Admin: 07/04/18 09:09 Dose: 1 mg Hydroxyzine HCl (Atarax) 25 mg PO Q8HR PRN; Protocol PRN Reason: Pruritus Stop: 08/31/18 09:43 Aztreonam 0.5 gm/ Dextrose 50 mls @ 100 mls/hr IV Q12HR [facility] Stop: 08/31/18 20:59 Last Admin: 07/04/18 09:09 Dose: 100 mls/hr Insulin Aspart (Novolog Insulin Sliding Scale) 0 units SUBQ ACHS [facility]; Protocol Stop: 08/31/18 11:29 Last Admin: 07/04/18 11:30 Dose: Not Given Miscellaneous (Clinical Monitoring) 1 ea [facility] DAILY PRN PRN Reason: RENAL DOSING Stop: 08/31/18 08:03 Miscellaneous (Vancomycin Iv Per Pharmacy) 1 ea DAILY [facility] Stop: 09/01/18 08:59 Nitroglycerin (Nitro-Bid) 1 inch TP Q6HR [facility] Stop: 08/31/18 11:59 Last Admin: 07/04/18 12:39 Dose: 1 inch Ondansetron HCl (Zofran Odt) 4 mg PO Q6H PRN PRN Reason: Nausea / Vomiting Senna (Senna) 8.6 mg PO Q8H PRN PRN Reason: Constipation Stop: 08/31/18 09:43 Sevelamer Carbonate (Renvela) 3,200 mg PO TID [facility] Stop: 08/31/18 13:59 Last Admin: 07/04/18 14:19 Dose: Not Given Simvastatin (Zocor) 20 mg PO HS [facility]; Protocol Stop: 08/31/18 20:59 Last Admin: 07/03/18 21:00 Dose: 20 mg General: no acute distress, well developed, well nourished HEENT: atraumatic, normocephalic, PERRLA, EOMI Neck: supple, no thyromegaly Cardiovascular: S1S2, regular Lungs: clear to percussion, rhonchi Abdomen: soft, no tender, no distended, no mass, no hepatomegaly, no splenomegaly, no bowel sounds, no obese Extremities: no cyanosis, no clubbing, no edema Neurological: awake, alert, oriented Skin: intact Infectious Disease Assmt/Plan - Assessment Assessment: 1. Pneumonia. 2. Chronic kidney disease stage 5, hemodialysis. 3. Hypertension. 4. Diabetes mellitus type 2. 5. End-stage renal disease. 6. Hyperlipidemia. 7. Bilateral below-knee amputation. - Plan Plan: CPM.
[2018-07-04] MEDS ORDERED: Probiotic Screen MC PRN (15:02)
--- NOTE | 2018-07-04 15:19 | General Progress Note ---
Subjective - Review of Systems Service Date: 07/04/18 Subjective: Patient had less shortness of breath patient had dialysis with ultrafiltration Objective - Results Result Diagrams: 07/03/18 06:40 07/03/18 06:40 Recent Labs: Laboratory Last Values WBC 8.1 Th/cmm (4.8-10.8) 07/03/18 06:40 RBC 2.81 Mil/cmm (3.80-5.20) L 07/03/18 06:40 Hgb 9.0 gm/dL (12-16) L 07/03/18 06:40 Hct 27.1 % (41.0-60) L 07/03/18 06:40 MCV 96.3 fl (81-100) 07/03/18 06:40 MCH 31.8 pg (27.0-31.0) H 07/03/18 06:40 MCHC Differential 33.1 pg (28.0-36.0) 07/03/18 06:40 RDW 13.5 % (11.5-20.0) 07/03/18 06:40 Plt Count 357 Th/cmm (150-400) 07/03/18 06:40 MPV 7.5 fl 07/03/18 06:40 Neutrophils % 58.5 % (40.0-80.0) 07/03/18 06:40 Lymphocytes % 28.6 % (20.0-50.0) 07/03/18 06:40 Monocytes % 8.2 % (2.0-10.0) 07/03/18 06:40 Eosinophils % 4.0 % (0.0-5.0) 07/03/18 06:40 Basophils % 0.7 % (0.0-2.0) 07/03/18 06:40 PT 11.9 SECONDS (9.5-11.5) H 07/01/18 19:38 INR 1.15 (0.5-1.4) 07/01/18 19:38 PTT (Actin FS) 30.5 SECONDS (26.0-38.0) 07/01/18 19:38 Sodium 137 mEq/L (136-145) 07/03/18 06:40 Potassium 3.9 mEq/L (3.5-5.1) 07/03/18 06:40 Chloride 99 mEq/L (98-107) 07/03/18 06:40 Carbon Dioxide 30.9 mEq/L (21.0-31.0) 07/03/18 06:40 Anion Gap 11.0 (7.0-16.0) 07/03/18 06:40 BUN 18 mg/dL (7-25) 07/03/18 06:40 Creatinine 3.3 mg/dL (0.6-1.2) H 07/03/18 06:40 Est GFR ( Amer) 17.9 ml/min (>90) 07/03/18 06:40 Est GFR (Non-Af Amer) 14.8 ml/min 07/03/18 06:40 BUN/Creatinine Ratio 5.5 07/03/18 06:40 Glucose 77 mg/dL (70-105) 07/03/18 06:40 POC Glucose 140 MG/DL (70 - 105) H 07/04/18 11:27 Whole Bld Lactic Acid 0.69 mmol/L (0.60-1.99) 07/01/18 19:38 Calcium 8.9 mg/dL (8.6-10.3) 07/03/18 06:40 Phosphorus 1.2 mg/dL (2.5-5.0) L 07/03/18 06:40 Total Bilirubin 0.4 mg/dL (0.3-1.0) 07/03/18 06:40 AST 12 U/L (13-39) L 07/03/18 06:40 ALT 3 U/L (7-52) L 07/03/18 06:40 Alkaline Phosphatase 132 U/L (34-104) H 07/03/18 06:40 Ammonia 34 umol/L (16-53) 07/02/18 05:57 Creatine Kinase 54 U/L (30-223) 07/01/18 19:38 Troponin I 0.06 ng/mL (0.01-0.05) H D 07/03/18 02:20 B-Natriuretic Peptide 3170.0 pg/mL (5.0-100.0) H 07/03/18 06:40 Total Protein 6.1 gm/dL (6.0-8.3) 07/03/18 06:40 Albumin 3.3 gm/dL (3.7-5.3) L 07/03/18 06:40 Globulin 2.8 gm/dL 07/03/18 06:40 Albumin/Globulin Ratio 1.2 (1.0-1.8) 07/03/18 06:40 Triglycerides 62 mg/dL (<150) 07/01/18 19:38 Cholesterol 125 mg/dL (<200) 07/01/18 19:38 LDL Cholesterol Direct 65 mg/dL (75-193) L 07/01/18 19:38 HDL Cholesterol 40 mg/dL (23-92) 07/01/18 19:38 Amylase 25 U/L (29-103) L 07/01/18 19:38 Lipase 10 U/L (11-82) L 07/01/18 19:38 Random Vancomycin 23.0 ug/mL (5.0-40.0) 07/04/18 05:50 - Physical Exam Vitals and I&O: Vital Signs Temp 98.3 F 07/04/18 12:00 Pulse 79 07/04/18 12:40 Resp 18 07/04/18 12:00 BP 175/70 07/04/18 12:40 Pulse Ox 96 07/04/18 12:00 Intake & Output 07/03/18 07/04/18 07/04/18 18:59 06:59 18:59 Intake Total 650 50 Balance 650 50 Weight (lbs) 67.721 kg 68.039 kg Intake: Intake, IV Amount 50 50 Aztreonam 0.5 gm In 50 50 Dextrose 5% 50 ml @ 100 mls/hr IV Q12HR [facility] Rx#: [id number] Oral 600 Other: # Voids 1 # Bowel Movements 1 Stool Characteristics Soft Soft Soft Weight Source Bedscale Bedscale Active Medications: Current Medications Acetaminophen (Tylenol) 325 mg PO Q6HR PRN PRN Reason: Pain (Mild) Stop: 08/31/18 09:43 Amlodipine Besylate (Norvasc) 5 mg PO DAILY [facility] Stop: 08/31/18 10:29 Last Admin: 07/04/18 12:40 Dose: 5 mg Carvedilol (Coreg) 6.25 mg PO BID [facility] Stop: 08/31/18 16:59 Last Admin: 07/04/18 12:39 Dose: 6.25 mg Clopidogrel Bisulfate (Plavix) 75 mg PO DAILY [facility] Stop: 09/01/18 08:59 Last Admin: 07/04/18 09:09 Dose: 75 mg Docusate Sodium (Colace) 100 mg PO BID [facility] Stop: 08/31/18 16:59 Last Admin: 07/04/18 09:09 Dose: 100 mg Epoetin Mohsen (Epogen) 10,000 units SUBQ TuThSa [facility] Stop: 09/01/18 13:41 Last Admin: 07/03/18 14:52 Dose: 10,000 units Ferrous Sulfate (Iron) 325 mg PO BID [facility] Stop: 08/31/18 16:59 Last Admin: 07/04/18 09:09 Dose: 325 mg Folic Acid (Folate) 1 mg PO DAILY [facility] Stop: 09/01/18 08:59 Last Admin: 07/04/18 09:09 Dose: 1 mg Hydroxyzine HCl (Atarax) 25 mg PO Q8HR PRN; Protocol PRN Reason: Pruritus Stop: 08/31/18 09:43 Aztreonam 0.5 gm/ Dextrose 50 mls @ 100 mls/hr IV Q12HR [facility] Stop: 08/31/18 20:59 Last Admin: 07/04/18 09:09 Dose: 100 mls/hr Insulin Aspart (Novolog Insulin Sliding Scale) 0 units SUBQ ACHS [facility]; Protocol Stop: 08/31/18 11:29 Last Admin: 07/04/18 11:30 Dose: Not Given Lactobacillus Rhamnosus (Culturelle 15b) 1 each PO DAILY [facility] Stop: 09/03/18 08:59 Miscellaneous (Clinical Monitoring) 1 ea MC DAILY PRN PRN Reason: RENAL DOSING Stop: 08/31/18 08:03 Miscellaneous (Vancomycin Iv Per Pharmacy) 1 ea MC DAILY [facility] Stop: 09/01/18 08:59 Miscellaneous (Probiotic Screen) 1 ea MC PRN PRN PRN Reason: PROTOCOL Stop: 09/02/18 15:01 Nitroglycerin (Nitro-Bid) 1 inch TP Q6HR [facility] Stop: 08/31/18 11:59 Last Admin: 07/04/18 12:39 Dose: 1 inch Ondansetron HCl (Zofran Odt) 4 mg PO Q6H PRN PRN Reason: Nausea / Vomiting Senna (Senna) 8.6 mg PO Q8H PRN PRN Reason: Constipation Stop: 08/31/18 09:43 Sevelamer Carbonate (Renvela) 3,200 mg PO TID [facility] Stop: 08/31/18 13:59 Last Admin: 07/04/18 14:19 Dose: Not Given Simvastatin (Zocor) 20 mg PO HS [facility]; Protocol Stop: 08/31/18 20:59 Last Admin: 07/03/18 21:00 Dose: 20 mg General: No acute distress HEENT: Other (normal) Neck: JVD (10 cm above sternal angle) Cardiovascular: Normal S1, Normal S2, Systolic murmurs Lungs: Other (IO rales) Abdomen: Bowel sounds Extremities: Edema Assessment/Plan - Assessment Assessment: Congestive heart failure systolic dysfunction Cardiomyopathy is ischemic Diabetic mellitus type II Diabetic end-stage renal disease on dialysis Diabetic peripheral neuropathy Diabetic peripheral vascular disease bilateral BKA Diabetic retinopathy patient legally blind Hyperlipidemia Iron deficiency anemia Echocardiogram ejection fraction 42% trace mitral regurgitation tricuspid regurgitation left atrial enlargement tried to turn enlargement left ventricular hypertrophy - Plan Plan: Patient to have dialysis with ultrafiltration continue present management
--- NOTE | 2018-07-04 16:37 | Cardiology ---
07/02/[address] Bob. PROCEDURE: Echocardiogram. M-MODE ECHOCARDIOGRAM: Mitral valve, anterior leaflet of mitral valve shows decreased excursion, EF velocity. Posterior leaflet of the mitral valve shows decreased excursion. Left ventricular posterior wall shows increased thickness, decreased excursion. Interventricular septum shows increased thickness, decreased excursion. There is hypertrophy of the left ventricle, ejection fraction 42%. Left atrium enlarged 4.2 cm. Aortic root shows normal dimension, normal excursion of aortic leaflets. CONCLUSION: Hypertrophy of the left ventricle, left atrial enlargement, ejection fraction 42%. 2D ECHO: Long axis view shows enlarged left ventricular cavity with decreased ejection fraction, hypertrophy of the left ventricle. Left atrial enlargement. Aortic root shows normal dimension, normal excursion of aortic leaflets. Short axis view of mitral valve normal. Short axis view of aortic valve normal. Apical four chamber view shows enlarged left ventricular cavity with decreased ejection fraction 42%, hypertrophy of the left ventricle. Left atrial enlargement, 4.2 cm. Right ventricle normal, right atrial enlargement. CONCLUSION: Left atrial enlargement, right atrial enlargement. Hypertrophy of the left ventricle, ejection fraction 42%. Doppler study shows trace mitral regurgitation and tricuspid regurgitation, right ventricular systolic pressure 31 mmHg. JOB# [id number]
--- NOTE | 2018-07-04 19:08 | Discharge Summary ---
DATE OF DISCHARGE: 07/04/2018 DATE OF TRANSFER TO HALFWAY: 07/04/2018. PRINCIPAL DIAGNOSES: 1. Metabolic encephalopathy. 2. Dilated cardiomyopathy. 3. Systolic heart failure. 4. Pulmonary edema. 5. Diabetes mellitus. 6. End-stage renal disease, on hemodialysis. 7. Hyperlipidemia. 8. Peripheral vascular disease, status post bilateral below-knee amputation. 9. Degenerative joint disease. 10. Legal blindness. 11. Decline in self-care and mobility. BRIEF STATEMENT FOR THE REASON FOR ADMISSION: A 68-year-old female resident of care home sent to Emergency Room for evaluation of increasing confusion, agitation as well as combative behavior. The patient was worked up in the Emergency Room and subsequently admitted to the hospital after the patient was noted to have metabolic encephalopathy with elevated BNP of more than 5000. Please refer to my H and P for further information. HOSPITAL COURSE: The patient was admitted to telemetry unit. The patient was placed on oxygen, nebulizer treatment, IV antibiotic along with Infectious Disease, Cardiology, and Nephrology consultation requested. Cardiac enzymes were obtained. A 2D echocardiogram was also done. The patient did have a 2D echocardiogram with global hypokinesis with ejection fraction 40%-42%. The patient was significantly volume overloaded, which improved with the dialysis. The patient did see Infectious Disease and recommended to continue antibiotic as ordered. The patient to get back to her baseline. A decision was made that the patient should be discharged back to care home with continuation of antibiotic to be continued at least for 1 week as well. The patient is discharged in stable condition. At the time of discharge, all of her medications are reconciled. The patient will be followed by myself and my nurse practitioner. At the time of discharge, all medications are reconciled. Discharge instructions discussed with staff. JOB# [id number]
--- NOTE | 2018-07-05 06:17 | Progress Notes ---
DATE: 07/04/2018 IDENTIFICATION: A 68-year-old female. SUBJECTIVE: The patient seen and examined. The patient is more alert and awake. The patient is getting her dialysis today. The patient has been seen by the cardiology clinical consultant. The patient is back to her baseline, hemodynamically remained stable at this time. Discussed with nursing staff, no new event reported. PHYSICAL EXAMINATION: VITAL SIGNS: Temperature 97.6, pulse 54, respiratory rate 18, blood pressure 146/47. HEENT: No facial asymmetry, legally blindness noted. NECK: Supple, no JVD. HEART: Regular. CHEST AND LUNGS: Equal in expansion. Mild fine basilar crackles noted. ABDOMEN: Soft. No guarding or rigidity. Bowel sounds present. No palpable mass. EXTREMITIES: Bilateral below-knee amputations noted. AVAILABLE DIAGNOSTIC DATA: Reviewed. CLINICAL IMPRESSION: 1. Ischemic cardiomyopathy with ejection fraction of 50%. 2. Congestive heart failure. 3. Pulmonary edema. 4. Diabetes. 5. Hypertension. 6. Healthcare-acquired pneumonia. 7. Peripheral vascular disease. 8. Degenerative joint disease. 9. Legal blindness. 10. Hyperlipidemia. PLAN: Discharge the patient to [facility]. The patient to penitentiary with the current treatment plan as prescribed, get her dialysis to be continued as an outpatient as well. Medications were reconciled. JOB# [id number]
[2018-07-05] MEDS ORDERED: Lactobacillus Rhamnosus GG 15 Billion CFU CAP.SPRINK PO SCH (09:00)
== END 2018-07-04 20:25 | DRG 194 ==
LOC: ER 16:22 → TELE 07-02 01:35
PROVIDERS: ADMIT Internal Medicine; ATTEND Internal Medicine
PROC: 5A1D70Z Performance of Urinary Filtration, Intermittent, Less than 6 Hours Per Day (ICD-10-PCS; principal; 2018-07-02)
PROC: 5A1D70Z Performance of Urinary Filtration, Intermittent, Less than 6 Hours Per Day (ICD-10-PCS; 2018-07-04)
DX: I13.2 Hypertensive heart and chronic kidney disease with heart failure and with stage 5 chronic kidney disease, or end stage renal disease (principal); G93.41 Metabolic encephalopathy; J18.9 Pneumonia, unspecified organism; E11.22 Type 2 diabetes mellitus with diabetic chronic kidney disease; E11.42 Type 2 diabetes mellitus with diabetic polyneuropathy; E11.319 Type 2 diabetes mellitus with unspecified diabetic retinopathy without macular edema; I08.1 Rheumatic disorders of both mitral and tricuspid valves; E83.39 Other disorders of phosphorus metabolism; N18.6 End stage renal disease; E11.51 Type 2 diabetes mellitus with diabetic peripheral angiopathy without gangrene; E11.649 Type 2 diabetes mellitus with hypoglycemia without coma; I50.20 Unspecified systolic (congestive) heart failure; F03.90 Unspecified dementia, unspecified severity, without behavioral disturbance, psychotic disturbance, mood disturbance, and anxiety; D63.1 Anemia in chronic kidney disease; I25.10 Atherosclerotic heart disease of native coronary artery without angina pectoris; E78.5 Hyperlipidemia, unspecified; M19.90 Unspecified osteoarthritis, unspecified site; D50.9 Iron deficiency anemia, unspecified; F32.9 Major depressive disorder, single episode, unspecified; H54.8 Legal blindness, as defined in USA; E66.9 Obesity, unspecified; I42.0 Dilated cardiomyopathy; Z99.2 Dependence on renal dialysis; Z68.41 Body mass index [BMI] 40.0-44.9, adult; Z88.0 Allergy status to penicillin; Z83.3 Family history of diabetes mellitus; Z82.49 Family history of ischemic heart disease and other diseases of the circulatory system; Z89.512 Acquired absence of left leg below knee; Z89.511 Acquired absence of right leg below knee
CPT/HCPCS: 36415-UA; 70450-TC; 71045-TC; 71250-TC; 80053-TC; 80061-TC; 80202-TC; 82140-TC; 82150-TC; 82550-TC; 82948-90; 83605; 83690-TC; 83880-TC; 84100-TC; 84484-TC; 85025-TC; 85610-TC; 85730-TC; 90937; 93307-TC; 94760; 96375; J0885; J1200; J1630; J1644; J1815; J1956; J2060; J3370; J3490; J7030; J7040; Z7610